=== PATIENT | male | born 1940 | race Caucasian/White ===

== ENCOUNTER 2020-06-02 15:41 | Inpatient (IN) | payer MEDICARE, SELFPAY ==
[2020-06-02] VITALS (7 sets, daily range): BP systolic 113–137; BP diastolic 68–79; PULSE 68–81; RESP 17–27; TEMP 36.3–36.8; O2SAT 88–95; BMI 23.5
--- NOTE | ~2020-06-02 | XR_ITS ---
EXAMINATION: XR chest 1V portable INDICATION: Shortness of breath, COVID pneumonia TECHNIQUE: Portable AP chest at 0611 hours COMPARISON: 06/02/2020 FINDINGS: Airspace opacities of the mid and lower lung zones persist without significant change. Ther e is no pleural effusion or pneumothorax. The cardiomediastinal silhouette is normal. IMPRESSION: 1. Stable airspace opacities of the mid and lower lung zones, consistent with pneumonia. 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 Stable airspace opacities of the mid and lower lung zones, consistent with p neumonia.
--- NOTE | ~2020-06-02 | XR_ITS ---
EXAMINATION: XR chest 1V portable DATE: 06/02/2020 16:40 INDICATION: Shortness of breath. COVID-19 positive. TECHNIQUE: A single frontal view of the chest was obtained. COMPARISON: None. FINDINGS: There is mild scarring at the lung apices. There are airspace opacities in the mid and lowe r lung zones. No pleural effusion or pneumothorax. The heart size is normal. IMPRESSION: 1. Airspace opacities in the mid and lower lung zones, consistent with pneumonia. 2. Mild scarring at the lung apices. 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 IMPRESSION: 1. Airspace opacities in the mid and lower lung zones, consistent with pneumoni a. 2. Mild scarring at the lung apices.
--- NOTE | 2020-06-02 15:45 | ECG_ITS ---
Measurements Intervals [place] Rate: 75 P: 35 IN: 129 QRS: 9 QRSD: 81 T: -6 QT: 403 QTc: 452 Interpretive Statements SINUS RHYTHM BORDERLINE T WAVE ABNORMALITY- INFERIOR LEADS BASELINE ARTIFACT- I, II, III, AVR, AVL, AVF, V4-V6 BORDERLINE ECG Electronically Signed On 06-02-2020 17:49:20 CDT by Justice Andrade D.O.
[2020-06-02 16:12] LABS: Basophils Percent Auto 0.2 % (0.2-1.2); Eosinophils Percent Auto 0.1 % (0-4.4); Hematocrit 40.7 % (42.0-52.0); Hemoglobin 13.6 g/dL (14.0-18.0); Immature Granulocyte Absolute 0.08 K/mm3 (0.00-0.031); Immature Granulocyte Percent A 0.8 % (0-0.5); Lymphocytes Percent Auto 11.6 % (18.3-44.2); Mean Corpuscular HGB Conc 33.4 g/dl (32-36); Mean Corpuscular Hemoglobin 31.1 pg (26-34); Mean Corpuscular Volume 93.1 fl (80-100); Mean Platelet Volume 12.3 fl (7.4-10.4); Monocytes Absolute Auto 1.1 K/mm3 (0.1-0.6); Monocytes Percent Auto 11.7 % (2.6-8.5); Neutrophils Absolute Auto 7.1 K/mm3 (1.3-6.7); Neutrophils Percent Auto 75.6 % (45.5-73.1); Platelet Count Result 160 k/mm3 (150-375); Red Blood Count 4.37 M/mm3 (4.6-6.20); Red Cell Distribution Width 13.1 % (11.5-14.5); White Blood Count 9.5 K/mm3 (4.5-10.0)
[2020-06-02 16:21] LABS: INR 1.2; Prothrombin Time 14.4 Seconds (11.1-14.7)
[2020-06-02 16:22] LABS: Partial Thromboplastin Time 57.6 SECONDS (22.3-36.8)
[2020-06-02 16:23] LABS: Lactic Acid Reflex 1.4 mmol/L (0.7-2.1)
[2020-06-02 16:39] LABS: Alanine Aminotransferase 59 U/L (4-50); Albumin Level 3.7 g/dL (3.5-5.1); Alkaline Phosphatase 232 U/L (38-126); Anion Gap 9 mmol/L (8-16); Aspartate Amino Transferase 75 U/L (17-59); Bilirubin,Total 0.9 mg/dL (0.2-1.3); Blood Urea Nitrogen 22 mg/dL (9-20); CRP 22.1 mg/dL (<1.0); Calcium 8.7 mg/dL (8.4-10.2); Carbon Dioxide 25 mmol/L (22-30); Chloride 100 mmol/L (98-107); Estimated CRCL calculation 46 ml/min; Estimated Glomerular Filt Rate > 60; Glucose 116 mg/dL (75-110); Potassium 4.3 mmol/L (3.4-5.0); Sodium 134 mmol/L (137-145)
--- NOTE | 2020-06-02 16:50 | ED.SOB ---
HPI - SOB/Dyspnea General Chief Complaint: Shortness of Breath/Dyspnea Stated Complaint: Covid + low O2 Time Seen by Provider: 06/02/20 16:08 Source: patient Mode of arrival: ambulatory Limitations: no limitations History of Present Illness HPI Narrative: 80 yr old with no major medical problems here with a complaints of shortness of breath, cough for past few days, he was diagnosed with Covid few days ago , he denies any chest pain .No nausea or vomiting.He also mentions his was also diagnosed with COVID . He states since this morning he has been having more SOB . MD elicited complaint: shortness of breath Onset (ago): day(s) (2) Context: recent illness Timing: constant Severity: moderate Exacerbating factors: exertion Relieving factors: oxygen Associated symptoms: denies other symptoms Treatment prior to arrival: oxygen Related Data Home Medications Medication Instructions Recorded Confirmed simvastatin mg 06/02/20 tamsulosin mg PO 06/02/20 06/02/20 Allergies Allergy/AdvReac Type Severity Reaction Status Date / Time No Known Allergies Allergy Verified 06/02/20 15:59 Review of Systems Review of Systems: All systems reviewed & are unremarkable except as noted in HPI and below Constitutional: Constitutional: Reports no additional constitutional complaints Eyes: Eyes: Reports no additional eye complaints ENT: Reports system reviewed and no additional complaints, except as documented Cardiovascular: Cardiovascular: Reports no additional cardiovascular complaints Respiratory: Respiratory: Reports as per HPI Gastrointestinal: Gastrointestinal: Reports no additional gastrointestinal complaints Musculoskeletal: Musculoskeletal: Reports no additional musculoskeletal complaints Neurologic: Reports system reviewed and no additional complaints, except as documented Psychiatric: Psychiatric: Reports no additional psychiatric complaints [facility] Social History Social History Smoking status: Never smoker Alcohol intake: never Gender identity (if verbalized by the patient): Male Exam Const: General: no acute distress and alert HENMT: Head: normal to inspection Eyes: Pupils: Equal, round and reactive pupils present Neck: Neck: no lymphadenopathy Chest: Chest palpation & inspection: normal inspection of the chest Resp: Auscultation: rhonchi and diminished lung sounds Cardio: Rate: regular rate GI: GI Palp: Yes Soft to palpation Skin: General skin exam: normal color Neuro: General: patient oriented x3, moves all extremities and CN's II-XI intact bilaterally Course Course Emergency Course: informed pt about his lab work and Xray findings . agreed for admission . Vital Signs Vital signs: Vital Signs Temperature 36.3 C L 06/02/20 15:55 Pulse Rate 81 06/02/20 15:55 Respiratory Rate 24 H 06/02/20 15:55 Blood Pressure 137/77 06/02/20 15:55 Pulse Oximetry 88 L 06/02/20 15:55 Temperature 36.3 C L 06/02/20 15:55 Pulse Rate 71 06/02/20 16:37 Respiratory Rate 17 06/02/20 16:37 Blood Pressure 113/74 06/02/20 16:37 Pulse Oximetry 94 06/02/20 16:37 MDM - SOB/Dyspnea Lab Data Result diagrams: 06/02/20 16:01 06/02/20 16:01 Labs: Lab Results 06/02/20 06/02/20 06/02/20 Range/Units 16:01 16:01 16:01 WBC 9.5 (4.5-10.0) K/mm3 RBC 4.37 L (4.6-6.20) M/mm3 Hgb 13.6 L (14.0-18.0) g/dL Hct 40.7 L (42.0-52.0) % MCV 93.1 (80-100) fl MCH 31.1 (26-34) pg MCHC 33.4 (32-36) g/dl RDW 13.1 (11.5-14.5) % Plt Count 160 (150-375) k/mm3 MPV 12.3 H (7.4-10.4) fl Immature Gran % (Auto) 0.8 H (0-0.5) % Neut % (Auto) 75.6 H (45.5-73.1) % Lymph % (Auto) 11.6 L (18.3-44.2) % [place] % (Auto) 11.7 H (2.6-8.5) % Eos % (Auto) 0.1 (0-4.4) % Baso % (Auto) 0.2 (0.2-1.2) % Lymph # (Auto) 1.10 (0.9-3.2) K/mm3 [place] # (
--- NOTE | 2020-06-02 17:04 | PC.NURSE ---
vrbo to start pt on Rocephin and azithromycin vrbo to give dexamethasone 6 mg ivp x1 rocephin 1g in 50 ml iv x1 azithromycin 500 mg in 250 ml iv x1 dexmethasone 6 mg ivp x1 all from dr zuluaga
[2020-06-02] MEDS: REMDESIVIR 200 MG/NS 250 ML 200 MG/250 ML BAG 250 MG IVPB (19:29)
--- NOTE | 2020-06-02 21:56 | ADMGEN ---
This patient, Dudley Gomez, was admitted to [facility] S[facility] Room 331-01. Patient/family oriented to hospital policies and general routines including ID bracelet, bed and alarms, visiting hours, pain management, procedures, bathroom and other care routines, personal items, smoking policy, room service/diet, and visiting hours. Information on how to activate the Rapid Response Team has been discussed. Patient/Family are encouraged to report perceived risks to care and to ask questions if they do not understand what they are told or what they should do.
--- NOTE | 2020-06-02 23:26 | PM.IMHP ---
H&P: HPI History of Present Illness Date/Time: 06/02/20 23:26 Chief complaint: COVID Pneumonia Narrative: Dudley Gomez is a 80 year old male who has a history of hyperlipidemia BPh. The patient stated that he tested positive for COVID-19 approximately 6 days ago. The patient stated he had been sick for couple days prior to that. He no longer has any fever but has been becoming more short of breath. His no chest pain no fever chills at this time. His was also tested for COVID-19 was diagnosed to within as well. This morning he just been more short of breath than usual. This occurs more so with exertion. On room air. The patient was placed on 2 L per nasal cannula in the patient increased to 94-95. He was started on Decadron and REMdezivir. IV fluids a Zithromax and Rocephin. I discontinued the fluids and the antibiotics. Opacities in the mid and lower lung zones consistent with pneumonia. Mild scarring at the lung apices. 75 ALT 59 alkaline phosphatase 232 C reactive protein 22.1. Labs all topical covid 19. The patient was admitted inpatient to 3rd floor. Date of service is 06/02/2020 Review of Systems Review of Systems: All systems reviewed & are unremarkable except as noted in HPI and below Constitutional: Constitutional: Reports as per HPI and Reports no additional constitutional complaints Eyes: Eyes: Reports as per HPI and Reports no additional eye complaints ENT: Reports system reviewed and no additional complaints, except as documented and Reports Normal hearing present Cardiovascular: Cardiovascular: Reports no additional cardiovascular complaints Respiratory: Respiratory: Reports no additional respiratory complaints and Reports no additional respiratory complaints Gastrointestinal: Gastrointestinal: Reports as per HPI and Reports no additional gastrointestinal complaints Musculoskeletal: Musculoskeletal: Reports no additional musculoskeletal complaints Integumentary/Breasts: Skin/Breast: Reports system reviewed and no additional complaints, except as docu and Reports as per HPI Neurologic: Reports system reviewed and no additional complaints, except as documented, Reports as per HPI and Reports Normal hearing present Psychiatric: Psychiatric: Reports no additional psychiatric complaints and Reports as per HPI Endocrine: Endocrine: Reports no additional endocrine complaints Hematologic/Lymphatic: Hematologic/Lymphatic: Reports no additional hematologic/lymphatic complaints Allergic/Immunologic: Allergic/Immunologic: Reports no additional allergic/immunologic complaints [facility] Past Medical History Medical History (Updated 06/02/20 @ 23:31 by Shandra Tello NP) BPH (benign prostatic hyperplasia) Hyperlipidemia Surgical History Surgical History (Updated 06/02/20 @ 23:31 by Shandra Tello NP) History of tonsillectomy and adenoidectomy Family History Family History Mother Cerebrovascular accident Social History Social History (Updated 06/02/20 @ 23:32 by Shandra Tello NP) Social History: The patient lives in [place] with his . His is the durable power workers compensation defense attorney for healthcare. The patient desires to be a full code. The patient has 3 children. 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 Lifelong nonsmoker. Does not use alcohol marijuana or illicit drugs. Smoking status: Never smoker Alcohol intake: former Substance use: never Living arrangements: with family Occupation/Education: retired Gender identity (if verbalized by the patient): Male Spiritual care concerns: No Meds Home Medications and Allergies Home Medications Medication Instructions Recorded Confirmed Type simvastatin 40 mg PO HS 06/02/20 06/02/20 History tamsulosin 0.4 mg PO HS 06/02/20 06/02/20 History Allergies Allergy/AdvReac Type Severity Reaction Status Date / Time No Known Allergies Allergy Verified 06/02/20 22:0
[2020-06-02] MEDS: TAMSULOSIN HCL 0.4 MG CAPSULE PO (23:57)
[2020-06-03] VITALS (10 sets, daily range): BP systolic 111–133; BP diastolic 48–75; PULSE 66–78; RESP 18–22; TEMP 36.4–36.7; O2SAT 88–100; BMI 23.5
[2020-06-03 06:44] LABS: Basophils Percent Auto 0.2 % (0.2-1.2); Hematocrit 43.6 % (42.0-52.0); Hemoglobin 14.6 g/dL (14.0-18.0); Immature Granulocyte Absolute 0.03 K/mm3 (0.00-0.031); Immature Granulocyte Percent A 0.5 % (0-0.5); Lymphocytes Absolute Auto 1.06 K/mm3 (0.9-3.2); Lymphocytes Percent Auto 18.8 % (18.3-44.2); Mean Corpuscular HGB Conc 33.5 g/dl (32-36); Mean Corpuscular Hemoglobin 31.3 pg (26-34); Mean Corpuscular Volume 93.4 fl (80-100); Mean Platelet Volume 12.2 fl (7.4-10.4); Monocytes Absolute Auto 0.3 K/mm3 (0.1-0.6); Monocytes Percent Auto 4.8 % (2.6-8.5); Neutrophils Absolute Auto 4.3 K/mm3 (1.3-6.7); Neutrophils Percent Auto 75.7 % (45.5-73.1); Platelet Count Result 197 k/mm3 (150-375); Red Blood Count 4.67 M/mm3 (4.6-6.20); Red Cell Distribution Width 13.1 % (11.5-14.5); White Blood Count 5.7 K/mm3 (4.5-10.0)
[2020-06-03 07:00] LABS: Alanine Aminotransferase 49 U/L (4-50); Albumin Level 3.5 g/dL (3.5-5.1); Alkaline Phosphatase 205 U/L (38-126); Anion Gap 11 mmol/L (8-16); Aspartate Amino Transferase 47 U/L (17-59); Bilirubin,Total 0.6 mg/dL (0.2-1.3); Blood Urea Nitrogen 20 mg/dL (9-20); Calcium 9.2 mg/dL (8.4-10.2); Carbon Dioxide 26 mmol/L (22-30); Chloride 104 mmol/L (98-107); Estimated CRCL calculation 62 ml/min; Estimated Glomerular Filt Rate > 60; Glucose 136 mg/dL (75-110); Magnesium 2.8 mg/dL (1.6-2.3); Potassium 4.5 mmol/L (3.4-5.0); Sodium 141 mmol/L (137-145)
[2020-06-03 07:12] LABS: CRP 22.8 mg/dL (<1.0)
[2020-06-03] MEDS: DEXAMETHASONE SOD PHOS INJ 4 MG/ML VIAL 6 MG IV PUSH (08:24)
[2020-06-03] MEDS: ENOXAPARIN 40 MG/0.4 ML SYRINGE SUB-Q (08:24)
--- NOTE | 2020-06-03 15:32 | PM.IMPN ---
Progress Note: A&P Assessment and Plan (1) COVID-19: Code(s): U07.1 - COVID-19 Status: Acute Assessment and Plan: Patient diagnosed with COVID about 6 days prior to admission. Patient here for increasing SOB and found to be hypoxic. The patient was placed on remdesivir and Decadron Day 2. Abx and IV fluids discontinued. Wean O2 as toelrated. (2) BPH (benign prostatic hyperplasia): Code(s): N40.0 - Benign prostatic hyperplasia without lower urinary tract symptoms Status: Chronic Assessment and Plan: Stable. Continue with Flomax (3) Hyperlipidemia: Code(s): E78.5 - Hyperlipidemia, unspecified Status: Chronic Assessment and Plan: Liver enzymes elevated due to COVID but are normal now. Zocor on hold. Will resume. (4) DVT prophylaxis: Code(s): Z29.9 - Encounter for prophylactic measures, unspecified Status: Acute Assessment and Plan: Lovenox Subjective Date/time seen: 06/03/20 15:32 Interval history: Date of service 06/03 80yo male recently diagnosed with COVID here for SOB. Patient feels better. Up abmulating in the room. 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 Cough productive of yellow brown sputum. No CP. No n/v. Eating well. Exam Narrative: Exam Narrative: AF 97.6 123/66 75 20 95% 4L Gen - NARD lying almost flat in bed Chest - CTA bilaterally, nml RR CV - RRR S1/S2; Tele showing occasional bradycardia to the 50's Abd - Soft, NT/ND, Positive BS Ext - No pedal edema Psych - Nml mood and affect Skin - Warm and dry Objective Data Vital Signs Vital Signs: Vital Signs - 24 hr 06/02/20 15:55 06/02/20 15:57 06/02/20 16:37 Temperature 97.4 F L Pulse Rate 81 71 Respiratory Rate 24 H 17 Blood Pressure 137/77 113/74 Pulse Oximetry 88 L 94 94 06/02/20 17:48 06/02/20 20:09 06/02/20 20:52 Temperature 98.2 F Pulse Rate 68 68 Respiratory Rate 27 H 20 Blood Pressure 119/68 137/79 Pulse Oximetry 95 90 94 06/02/20 22:39 06/03/20 00:00 06/03/20 00:04 Temperature Pulse Rate 71 71 Respiratory Rate Blood Pressure Pulse Oximetry 88 L 93 06/03/20 00:07 06/03/20 04:00 06/03/20 08:00 Temperature 98.0 F 97.6 F Pulse Rate 68 74 74 Respiratory Rate 22 H 20 Blood Pressure 119/63 111/48 L Pulse Oximetry 93 93 06/03/20 09:00 06/03/20 12:00 Temperature 97.6 F 97.6 F Pulse Rate 69 78 Respiratory Rate 20 20 Blood Pressure 131/75 123/66 Pulse Oximetry 97 95 Intake/Output Intake/Output: Intake & Output 05/31/20 06/01/20 06/02/20 06/03/20 23:59 23:59 23:59 23:59 Intake Total 550 880 Output Total 500 Balance 550 380 Meds/Results Medications: Active Medications Generic Name Dose Route Start Last Admin Trade Name Freq PRN Reason Stop Dose Admin Acetaminophen 650 mg 06/02/20 17:35 Acetaminophen 325 Mg Tablet PO Q4H PRN Mild Pain (1-3) or Fever Albuterol 2 puff 06/02/20 23:24 Albuterol Sulfate (*Sp) Aerosol 1 Puff INHALATION QIDRT PRN Shortness Of Breath Dexamethasone Sodium Phosphate 6 mg 06/03/20 09:00 06/03/20 08:24 Dexamethasone Sod Phos Inj 4 Mg/Ml Vial IV PUSH 06/12/20 09:01 6 mg DAILY SHERRY Administration Enoxaparin Sodium 40 mg 06/03/20 09:00 06/03/20 08:24 Enoxaparin 40 Mg/0.4 Ml Syringe SUB-Q 40 mg DAILY SHERRY Administration Remdesivir 100 mg in 250 mls @ 250 mls/hr 06/03/20 19:00 IVPB 06/06/20 19:01 Q24H SHERRY Ondansetron HCl 4 mg 06/02/20 17:35 Ondansetron Inj 4 Mg/2 Ml Vial IV PUSH Q4H PRN Nausea Tamsulosin HCl 0.4 mg 06/02/20 22:50 06/02/20 23:57 Tamsulosin Hcl 0.4 Mg Capsule PO 0.4 mg HS SHERRY Administration Radiology Results: ITS Impressions Chest X-Ray 06/02/20 16:41 IMPRESSION: 1. Airspace opacities in the mid and lower lung zones, consistent with pneumonia. 2. Mild scarring at the lung apices. Labs Labs: Laboratory Results - last 24 hr
[2020-06-03] MEDS: REMDESIVIR 100 MG/NS 250 ML 100 MG/250 ML BAG 250 MG IVPB (20:01)
[2020-06-03] MEDS: TAMSULOSIN HCL 0.4 MG CAPSULE PO (20:02)
[2020-06-03] MEDS: SIMVASTATIN 20 MG TABLET 40 MG PO (20:02)
[2020-06-04] VITALS (9 sets, daily range): BP systolic 118–139; BP diastolic 62–97; PULSE 52–75; RESP 18–20; TEMP 36.4–36.6; O2SAT 92–98
[2020-06-04 06:40] LABS: Alanine Aminotransferase 45 U/L (4-50); Anion Gap 7 mmol/L (8-16); Blood Urea Nitrogen 26 mg/dL (9-20); Calcium 8.6 mg/dL (8.4-10.2); Carbon Dioxide 26 mmol/L (22-30); Chloride 106 mmol/L (98-107); Estimated CRCL calculation 56 ml/min; Estimated Glomerular Filt Rate > 60; Glucose 111 mg/dL (75-110); Lactate Dehydrogenase 695 U/L (313-618); Potassium 4.1 mmol/L (3.4-5.0); Sodium 139 mmol/L (137-145)
[2020-06-04 06:52] LABS: CRP 11.9 mg/dL (<1.0)
--- NOTE | 2020-06-04 09:41 | PM.IMPN ---
Progress Note: A&P Assessment and Plan (1) COVID-19: Code(s): U07.1 - COVID-19 Status: Acute Assessment and Plan: Patient diagnosed with COVID about 6 days prior to admission. Patient here for increasing SOB and found to be hypoxic. The patient was placed on remdesivir and Decadron Day 3. Abx and IV fluids discontinued. Still on 4L NC but exam benign. Wean O2 as tolerated (2) BPH (benign prostatic hyperplasia): Code(s): N40.0 - Benign prostatic hyperplasia without lower urinary tract symptoms Status: Chronic Assessment and Plan: Stable. Continue with Flomax (3) Hyperlipidemia: Code(s): E78.5 - Hyperlipidemia, unspecified Status: Chronic Assessment and Plan: Liver enzymes elevated due to COVID but are normal now. Continue Zocor. (4) DVT prophylaxis: Code(s): Z29.9 - Encounter for prophylactic measures, unspecified Status: Acute Assessment and Plan: Lovenox 06/04 Subjective Date/time seen: 06/04/20 09:41 Interval history: Date of service 06/04 80yo male recently diagnosed with COVID here for SOB. Patient feels well. Minimal dyspnea on exertion. Shortness of breath overall is much improved. No chest pain. No nausea or vomiting. Cough is minimal. He has been up ambulating in the room frequently. Exam Narrative: Exam Narrative: AF 97.5 120/63 69 18 92% 4L Gen - NARD sitting at the side of the bed Chest - CTA bilaterally, nml RR CV - RRR S1/S2; Tele showing occasional bradycardia Abd - Soft, NT/ND, Positive BS Ext - No pedal edema Psych - Nml mood and affect Skin - Warm and dry Objective Data Vital Signs Vital Signs: Vital Signs - 24 hr 06/03/20 12:00 06/03/20 16:00 06/03/20 17:00 Temperature 97.6 F 97.6 F Pulse Rate 78 75 67 Respiratory Rate 20 20 Blood Pressure 123/66 133/74 Pulse Oximetry 95 100 06/03/20 20:00 06/04/20 00:00 06/04/20 04:00 Temperature 97.8 F 97.9 F 97.6 F Pulse Rate 77 62 52 L Respiratory Rate 18 18 18 Blood Pressure 125/72 139/74 136/62 Pulse Oximetry 98 93 93 06/04/20 09:00 Temperature 97.5 F L Pulse Rate 69 Respiratory Rate 18 Blood Pressure 120/63 Pulse Oximetry 92 Intake/Output Intake/Output: Intake & Output 06/01/20 06/02/20 06/03/20 06/04/20 23:59 23:59 23:59 23:59 Intake Total 550 1920 300 Output Total 1100 Balance 550 820 300 Meds/Results Medications: Active Medications Generic Name Dose Route Start Last Admin Trade Name Freq PRN Reason Stop Dose Admin Acetaminophen 650 mg 06/02/20 17:35 Acetaminophen 325 Mg Tablet PO Q4H PRN Mild Pain (1-3) or Fever Albuterol 2 puff 06/02/20 23:24 Albuterol Sulfate (*Sp) Aerosol 1 Puff INHALATION QIDRT PRN Shortness Of Breath Dexamethasone Sodium Phosphate 6 mg 06/03/20 09:00 06/03/20 08:24 Dexamethasone Sod Phos Inj 4 Mg/Ml Vial IV PUSH 06/12/20 09:01 6 mg DAILY SHERRY Administration Enoxaparin Sodium 40 mg 06/03/20 09:00 06/03/20 08:24 Enoxaparin 40 Mg/0.4 Ml Syringe SUB-Q 40 mg DAILY SHERRY Administration Remdesivir 100 mg in 250 mls @ 250 mls/hr 06/03/20 19:00 06/03/20 21:00 IVPB 06/06/20 19:01 Infused Q24H SHERRY Infusion Ondansetron HCl 4 mg 06/02/20 17:35 Ondansetron Inj 4 Mg/2 Ml Vial IV PUSH Q4H PRN Nausea Simvastatin 40 mg 06/03/20 21:00 06/03/20 20:02 Simvastatin 20 Mg Tablet PO 40 mg HS SHERRY Administration Tamsulosin HCl 0.4 mg 06/02/20 22:50 06/03/20 20:02 Tamsulosin Hcl 0.4 Mg Capsule PO 0.4 mg HS SHERRY Administration Radiology Results: ITS Impressions Chest X-Ray 06/02/20 16:41 IMPRESSION: 1. Airspace opacities in the mid and lower lung zones, consistent with pneumonia. 2. Mild scarring at the lung apices. Labs Labs: Laboratory Results - last 24 hr 06/04/20 06/04/20 05:59 05:59 Sodium 139 Potassium 4.1 Chloride 106 Carbon Dioxide 26 Anion Gap 7 L
[2020-06-04] MEDS: DEXAMETHASONE SOD PHOS INJ 4 MG/ML VIAL 6 MG IV PUSH (09:48)
[2020-06-04] MEDS: ENOXAPARIN 40 MG/0.4 ML SYRINGE SUB-Q (09:48)
--- NOTE | 2020-06-04 12:40 | WPDCDIQUERY2 ---
CDI Query Clarification Request Patient admitted from ED with diagnosis of Pneumonia, COVID-19 (test positive 6 days prior to admission). CXR 06/02 impression: 1. Airspace opacities in the mid and lower lung zones, consistent with pneumonia. 2. Mild scarring at the lung apices No further mention of pneumonia. Please clarify if diagnosis of pneumonia is present or has been ruled out, if known. Thank you. <Aylin Waldron, REMEDIATION BIOANALYTICS CONSULTANT - Last Filed: 06/04/20 12:43>
[2020-06-04] MEDS: REMDESIVIR 100 MG/NS 250 ML 100 MG/250 ML BAG 150 MG IVPB (18:01)
[2020-06-04] MEDS: SIMVASTATIN 20 MG TABLET 40 MG PO (20:39)
[2020-06-04] MEDS: TAMSULOSIN HCL 0.4 MG CAPSULE PO (20:40)
[2020-06-05] VITALS (9 sets, daily range): BP systolic 115–144; BP diastolic 63–89; PULSE 57–67; RESP 14–18; TEMP 36.3–36.9; O2SAT 87–97
[2020-06-05 06:26] LABS: Alanine Aminotransferase 45 U/L (4-50)
[2020-06-05] MEDS: DEXAMETHASONE SOD PHOS INJ 4 MG/ML VIAL 6 MG IV PUSH (08:45)
[2020-06-05] MEDS: ENOXAPARIN 40 MG/0.4 ML SYRINGE SUB-Q (08:45)
[2020-06-05 10:15] LABS: Estimated CRCL calculation 56 ml/min; Estimated Glomerular Filt Rate > 60
--- NOTE | 2020-06-05 14:36 | PM.IMPN ---
Progress Note: A&P Assessment and Plan (1) COVID-19: Code(s): U07.1 - COVID-19 Status: Acute Assessment and Plan: Patient diagnosed with COVID about 6 days prior to admission. Patient here for increasing SOB and found to be hypoxic. The patient was placed on remdesivir and Decadron Day 4. Abx and IV fluids discontinued. Still on 3L NC but exam benign and patient not progressing. Wean O2 as tolerated. Repeat CXR and inflammatory markers tomorrow PNEUMONIA RULED OUT. (2) BPH (benign prostatic hyperplasia): Code(s): N40.0 - Benign prostatic hyperplasia without lower urinary tract symptoms Status: Chronic Assessment and Plan: Stable. Continue with Flomax (3) Hyperlipidemia: Code(s): E78.5 - Hyperlipidemia, unspecified Status: Chronic Assessment and Plan: Liver enzymes elevated due to COVID but are normal now. Continue Zocor. (4) DVT prophylaxis: Code(s): Z29.9 - Encounter for prophylactic measures, unspecified Status: Acute Assessment and Plan: Lovenox Subjective Date/time seen: 06/05/20 14:37 Interval history: Date of service 06/05 80yo male recently diagnosed with COVID here for SOB. No issues overnight. Patient denies any nausea or vomiting. No complaints of chest pain or shortness of breath. Still has some dyspnea on exertion. He is up ambulating in the room. No abdominal pain. Eating normally. Exam Narrative: Exam Narrative: AF 97.5 119/73 66 14 95% 3L Gen - NARD sitting at the side of the bed Chest - CTA bilaterally, nml RR CV - RRR S1/S2 Abd - Soft, NT/ND, Positive BS Ext - No pedal edema Psych - Nml mood and affect Skin - Warm and dry Objective Data Vital Signs Vital Signs: Vital Signs - 24 hr 06/04/20 17:00 06/04/20 17:30 06/04/20 20:00 Temperature 97.6 F 97.7 F Pulse Rate 64 62 69 Respiratory Rate 20 18 18 Blood Pressure 131/74 133/97 H Pulse Oximetry 98 98 93 06/05/20 00:00 06/05/20 04:00 06/05/20 08:00 Temperature 98.4 F 97.9 F 97.3 F L Pulse Rate 67 57 L 66 Respiratory Rate 18 18 16 Blood Pressure 144/76 H 139/73 116/63 Pulse Oximetry 93 97 90 06/05/20 08:48 06/05/20 08:58 06/05/20 12:00 Temperature 97.5 F L Pulse Rate 57 L 66 Respiratory Rate 18 14 Blood Pressure 119/73 Pulse Oximetry 87 L 90 95 Intake/Output Intake/Output: Intake & Output 06/02/20 06/03/20 06/04/20 06/05/20 23:59 23:59 23:59 23:59 Intake Total 550 1920 3250 490 Output Total 1100 Balance 912 889 7143 490 Meds/Results Medications: Active Medications Generic Name Dose Route Start Last Admin Trade Name Freq PRN Reason Stop Dose Admin Acetaminophen 650 mg 06/02/20 17:35 Acetaminophen 325 Mg Tablet PO Q4H PRN Mild Pain (1-3) or Fever Albuterol 2 puff 06/02/20 23:24 Albuterol Sulfate (*Sp) Aerosol 1 Puff INHALATION QIDRT PRN Shortness Of Breath Dexamethasone Sodium Phosphate 6 mg 06/03/20 09:00 06/05/20 08:45 Dexamethasone Sod Phos Inj 4 Mg/Ml Vial IV PUSH 06/12/20 09:01 6 mg DAILY SHERRY Administration Enoxaparin Sodium 40 mg 06/03/20 09:00 06/05/20 08:45 Enoxaparin 40 Mg/0.4 Ml Syringe SUB-Q 40 mg DAILY SHERRY Administration Remdesivir 100 mg in 250 mls @ 250 mls/hr 06/03/20 19:00 06/04/20 19:43 IVPB 06/06/20 19:01 Infused Q24H SHERRY Infusion Ondansetron HCl 4 mg 06/02/20 17:35 Ondansetron Inj 4 Mg/2 Ml Vial IV PUSH Q4H PRN Nausea Simvastatin 40 mg 06/03/20 21:00 06/04/20 20:39 Simvastatin 20 Mg Tablet PO 40 mg HS SHERRY Administration Tamsulosin HCl 0.4 mg 06/02/20 22:50 06/04/20 20:40 Tamsulosin Hcl 0.4 Mg Capsule PO 0.4 mg HS SHERRY Administration Radiology Results: ITS Impressions Chest X-Ray 06/02/20 16:41 IMPRESSION: 1. Airspace opacities in the mid and lower lung zones, consistent with pneumonia. 2. Mild scarring at the lung apices. Labs Labs: Laboratory Re
[2020-06-05] MEDS: REMDESIVIR 100 MG/NS 250 ML 100 MG/250 ML BAG 150 MG IVPB (18:15)
[2020-06-05] MEDS: TAMSULOSIN HCL 0.4 MG CAPSULE PO (20:34)
[2020-06-05] MEDS: SIMVASTATIN 20 MG TABLET 40 MG PO (20:34)
[2020-06-06] VITALS (7 sets, daily range): BP systolic 112–157; BP diastolic 71–99; PULSE 55–75; RESP 18–20; TEMP 36.4–36.7; O2SAT 91–99
--- NOTE | 2020-06-06 01:49 | PC.NURSE ---
Daylight Savings Time For Daylight Savings Time Ending in the Fall - Clocks are moved back. For Daylight Savings Time Beginning in the Spring - Clocks are moved ahead. For [facility], the time of change occurs at 0200 hrs. Time is taken from the room server. This entry on the patient's chart recognizes the change in time reflected during documentation. Example: 2 entries for vital signs may be charted for 0200 hrs.
[2020-06-06 06:43] LABS: Basophils Percent Auto 0.2 % (0.2-1.2); Eosinophils Percent Auto 0.2 % (0-4.4); Hematocrit 39.5 % (42.0-52.0); Hemoglobin 13.6 g/dL (14.0-18.0); Immature Granulocyte Absolute 0.11 K/mm3 (0.00-0.031); Lymphocytes Absolute Auto 1.45 K/mm3 (0.9-3.2); Lymphocytes Percent Auto 13.5 % (18.3-44.2); Mean Corpuscular HGB Conc 34.4 g/dl (32-36); Mean Corpuscular Hemoglobin 31.5 pg (26-34); Mean Corpuscular Volume 91.4 fl (80-100); Mean Platelet Volume 12.5 fl (7.4-10.4); Monocytes Absolute Auto 1.1 K/mm3 (0.1-0.6); Monocytes Percent Auto 10.4 % (2.6-8.5); Neutrophils Percent Auto 74.7 % (45.5-73.1); Platelet Count Result 142 k/mm3 (150-375); Red Blood Count 4.32 M/mm3 (4.6-6.20); Red Cell Distribution Width 13.2 % (11.5-14.5); White Blood Count 10.8 K/mm3 (4.5-10.0)
[2020-06-06 07:00] LABS: Alanine Aminotransferase 48 U/L (4-50); Albumin Level 2.9 g/dL (3.5-5.1); Alkaline Phosphatase 119 U/L (38-126); Anion Gap 6 mmol/L (8-16); Aspartate Amino Transferase 44 U/L (17-59); Bilirubin,Total 0.4 mg/dL (0.2-1.3); Blood Urea Nitrogen 20 mg/dL (9-20); CRP 4.6 mg/dL (<1.0); Calcium 8.6 mg/dL (8.4-10.2); Carbon Dioxide 26 mmol/L (22-30); Chloride 106 mmol/L (98-107); Estimated CRCL calculation 56 ml/min; Estimated Glomerular Filt Rate > 60; Glucose 93 mg/dL (75-110); Lactate Dehydrogenase 734 U/L (313-618); Potassium 4.3 mmol/L (3.4-5.0); Sodium 138 mmol/L (137-145)
[2020-06-06] MEDS: DEXAMETHASONE SOD PHOS INJ 4 MG/ML VIAL 6 MG IV PUSH (09:28)
[2020-06-06] MEDS: ENOXAPARIN 40 MG/0.4 ML SYRINGE SUB-Q (09:28)
--- NOTE | 2020-06-06 10:22 | PM.DS ---
DS: Admitting Diagnosis Admitting Diagnosis Admitting Diagnosis: COVID Pneumonia DS: Discharge Diagnosis Discharge Diagnosis (1) COVID-19: Code(s): U07.1 - COVID-19 Status: Acute Assessment and Plan: Patient diagnosed with COVID about 6 days prior to admission. Patient here for increasing SOB and found to be hypoxic. CXR showing airspace opacities in the mid and lower lung zones. Pneumonia ruled out. The patient was placed on remdesivir and Decadron. Abx and IV fluids were started initially but discontinued because all felt this was related to COVID. Repeat CXR show similar findings. Ferritin 1230 and trended down. CRP 22.8 and also trended down. Able to be weaned to room air. (2) BPH (benign prostatic hyperplasia): Code(s): N40.0 - Benign prostatic hyperplasia without lower urinary tract symptoms Status: Chronic Assessment and Plan: Stable. We continued with Flomax (3) Hyperlipidemia: Code(s): E78.5 - Hyperlipidemia, unspecified Status: Chronic Assessment and Plan: Liver enzymes elevated due to COVID but are normal now. We resumed Zocor. DS: Summary Hospital Course Reason for hospitalization: 80yo male who was recently diagnosed with COVID here for SOB and found to be hypoxic. Please see H&P for details Hospital Course: As above Time Spent with Patient Time attestation: Total time spent providing and/or coordinating discharge services: 32 minutes Time spent: Greater than 30 minutes Exam Narrative: Exam Narrative: AF 97.6 128/99 70 20 91% ra Gen - NARD sitting up Chest - CTA bilaterally, nml RR CV - RRR S1/S2 Abd - Soft, NT/ND, Positive BS Ext - No pedal edema Psych - Nml mood and affect Skin - Warm and dry DS: Data Data Completed and Pending Labs on day of discharge: Labs from last 24 hours 06/06/20 06/06/20 06/06/20 06:26 06:26 06:26 WBC 10.8 H RBC 4.32 L Hgb 13.6 L Hct 39.5 L MCV 91.4 MCH 31.5 MCHC 34.4 RDW 13.2 Plt Count 142 L MPV 12.5 H Immature Gran % (Auto) 1.0 H Neut % (Auto) 74.7 H Lymph % (Auto) 13.5 L Leon % (Auto) 10.4 H Eos % (Auto) 0.2 Baso % (Auto) 0.2 Lymph # (Auto) 1.45 Leon # (Auto) 1.1 H Eos # (Auto) 0.0 Baso # (Auto) 0.0 Abs Immat Gran (auto) 0.11 H Absolute Neuts (auto) 8.0 H Absolute Nucleated RBC 0.0 Nucleated RBC % 0.0 Sodium 138 Potassium 4.3 Chloride 106 Carbon Dioxide 26 Anion Gap 6 L BUN 20 Creatinine 0.90 Estim Creat Clear Calc 56 Estimated GFR > 60 Glucose 93 Calcium 8.6 Ferritin 571.00 H Total Bilirubin 0.4 AST 44 ALT 48 Alkaline Phosphatase 119 Lactate Dehydrogenase 734 H C-Reactive Protein 4.6 H Total Protein 6.0 L Albumin 2.9 L Preliminary micro results at discharge 06/02/20 16:02 Blood Culture - Preliminary Blood 06/02/20 16:01 Blood Culture - Preliminary Blood Discharge Plan Discharge Attending physician on discharge: Joe Almonte Discharging Clinician: Joe Almonte Anticipated Discharge Date/Time: 06/06/20 10:30 Patient Disposition: Home, Self-Care Activity: as tolerated Diet: regular Discharge Instructions: Please avoid large gathering, wear face coverings in public and practice social distance. Please remain under quarantine through 06/17/20 Please complete your steroid course even if you are starting to feel well. Take precautions to avoid falls. Rise slowly from a lying or sitting position. Pause before standing or walking. Avoid NSAIDs (ibuprofen, naproxen, Aleve). Tylenol is safe to take. Follow-up with your doctor in 1-2 weeks. Please call for appointment. Patient Instructions: Antibiotic Form, Viral Pneumonia (GEN), Pain Management (GEN), Droplet Precautions (GEN), COVID-19 (Coronavirus Disease 2019) (GEN), COVID-19: Slow the Coronavirus Spread (GEN), Face Coverings (Mas
--- NOTE | 2020-06-06 11:50 | PCRCNOTE ---
HOME OXYGEN EVALUATION COMPLETE; PT. DOES NOT REQUIRE HOME OXYGEN. R.N. NOTIFIED OF RESULTS.
== END 2020-06-06 13:10 | disposition home or self-care (01) | DRG 179 ==
LOC: ANHED 18:51 → ANH3MEDSUR 23:46
PROVIDERS: Nurse Practitioner; Admitting Provider Family Medicine; Emergency Provider Family Medicine; PCP Internal Medicine; Visit Provider Internal Medicine
DX: U07.1 COVID-19 (principal); E78.5 Hyperlipidemia, unspecified; N40.0 Benign prostatic hyperplasia without lower urinary tract symptoms
CPT/HCPCS: 36415; 71045; 80048; 80053; 82565; 82728; 83605; 83615; 83735; 84460; 85025; 85610; 85730; 86140; 87040; 93005; 94618; 96374; 96375; 99285; A9270; J0456; J0696; J1100; J1650

== ENCOUNTER 2021-09-28 01:58 | Day surgery (SDC) | payer MEDICARE, SELFPAY ==
--- NOTE | 2021-09-22 12:32 | PC.NURSE ---
Report to the Outpatient Waiting Room, entrance under the green pavilion located off [facility], at time _1030 on date ___09/28/21____. OR Time: __1230 . - You and your visitor will be asked a series of questions to screen for COVID 19 for your protection. - A mask is required within the hospital. Preoperative COVID Testing Requirements: No COVID Test needed if: (proof is required; if not received patient will have Rapid Test prior to entry) - Patient has received COVID Vaccine at least 14 days prior to procedure date or - Patient has positive COVID test result within last 90 days of surgery date. COVID Test needed if above criteria is not met If not COVID vaccinated a COVID test must be conducted within 72 hours of surgery and patient is asked to isolate self from time of testing until procedure. You will go to the [facility] for your COVID testing. The [facility] site is located at the corner of [address] [facility]. You will only be called if COVID results are positive and your surgeon may reschedule your elective surgery date. Patients may have clear liquids (water, carbonated beverages, clear teas, apple juice) until 3 hours prior to surgery with a maximum of 20 ounces. - No food from midnight until time of surgery - Infants may have breast milk until 4 hours before surgery, infant formula 6 hours prior to surgery. - Children will be allowed to drink immediately following surgery. If applicable, please bring a bottle or sippy cup to assist with drinking. Juice, water, soda, and popsicles are readily available. For infants on formula, please bring formula the day of surgery. Pacifiers are allowed. Take the following medications with a SIP of water the morning of surgery: ___NONE Medications to discontinue per physician ALL VITAMINS AND SUPPLEMENTS 3 DAYS PRE OP Date to take last dose____09/24/21 Please no make-up, nail indonesian, hairspray, perfume, deodorant, or body powder the day of surgery. No jewelry (including any body piercings) or valuables the day of surgery, leave them at home. Please take a shower or bath the night before, or the morning of, surgery with an antibacterial soap. Wear comfortable, loose fitting clothing. Children are encouraged to wear pajamas. - Jewelry must be removed prior to entering the operating room. Rings and piercings that are not removed may be cut off. - The hospital will not accept responsibility for valuables. - Please leave all valuables, including medications, at home the day of surgery. If you are going home after surgery, a licensed race car driver must drive you home. - NO public transportation without another adult. - We recommend that an adult stay with you for 24 hours following discharge. - We also recommend that you do not drive, make important decision, drink alcoholic beverages, or take any drugs that were not prescribed by your health care provider for at least 24 hours after your discharge time. For Pediatric surgeries, we recommend two adults accompany the child home (only one inside the building at this time). One visitor will be allowed to accompany the patient into the hospital. Patients visitor will be instructed to remain with patient at all times or leave the building. We will allow the visitor to come back to the postoperative area when patient is ready. Follow any additional instructions given to you from your surgeon. Telephone instructions given to __PATIENT and asked if any additional questions and then verbalized understanding. Patient advised to call surgeon office or pre surgery nurse liaison [phone] if any additional questions.
[2021-09-22 12:33] VITALS: BMI 25.0
--- NOTE | 2021-09-28 08:10 | WPDHPUPDATE1 ---
History and Physical Update Update Date/Time: 09/28/21 08:10 History and Physical has been reviewed, including an updated exam of the patient. There are NO changes in the patient's condition. Risks, benefits, and alternatives have been discussed and questions answered. Patient agrees to proceed with procedure.
[2021-09-28 11:00] VITALS: BP 146/80; PULSE 64; RESP 16; TEMP 36.8; O2SAT 100
[2021-09-28] MEDS: LACTATED RINGERS 1,000 ML 30 ML IV CONT (12:00)
--- NOTE | 2021-09-28 14:05 | SUR.PREOP ---
1345; SPOKE WITH PT AND SPOUSE. SURGERY NOW DELAYED ANOTHER 2 HOURS. RECLINER BROUGHT INTO ROOM, PT UP TO RECLINER FOR COMFORT.
--- NOTE | 2021-09-28 15:35 | WPDANESEPPF ---
Anes - Initial Pre Proc Eval Procedure: Operation Date: 09/28/21 15:00 Proposed Procedures p Excision Skin Lesion of Scalp - Espinoza Benitez MD Date/Time: 09/28/21 15:35 Surgeon: Espinoza Benitez MD Pre Op Diagnosis: Scalp Lesion Patient Data Age: 81 Gender: M Height: 1.7 m Weight: 69.6 kg Last Vital Signs Temp 36.8 C 09/28/21 11:00 Pulse 64 09/28/21 11:00 Resp 16 09/28/21 11:00 BP 146/80 H 09/28/21 11:00 Pulse Ox 100 09/28/21 11:00 Allergies Allergy/AdvReac Type Severity Reaction Status Date / Time No Known Allergies Allergy Verified 09/22/21 12:22 Home Medications Medication Instructions Recorded Confirmed Type simvastatin 40 mg PO HS 06/02/20 09/28/21 History tamsulosin 0.4 mg PO HS 06/02/20 09/28/21 History aspirin 81 mg tablet,delayed 81 mg PO HS 09/19/21 09/28/21 History release melatonin 5 mg capsule 5 mg PO DAILY PRN cap 09/19/21 09/28/21 History Patient hx anesthesia problems: none Family hx anesthesia problems: none Results Review: All pre-operative results and documents have been reviewed as part of the pre-operative evaluation. [facility] Past Medical History Medical History BPH (benign prostatic hyperplasia) Hyperlipidemia Surgical History Surgical History History of cataract surgery Family History Family History Mother Cerebrovascular accident Father No problems noted. Social History Social History Social History: The patient lives in [place] with his . His is the durable power assistant district attorney for healthcare. The patient desires to be a full code. The patient has 3 children. 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 Lifelong nonsmoker. Does not use alcohol marijuana or illicit drugs. Smoking status: Never smoker Alcohol intake: current Drinks per week: 2 Alcohol use details: SOCIALLY Substance use: never Living arrangements: with family Gender identity (if verbalized by the patient): Male Spiritual care concerns: No Anes - Eval Final PreProcedure Day of Procedure 09/28/21 15:35 Patient weight: normal Heart: regular rate and rhythm Lungs: clear to auscultation Airway: Mallampati scale class II Neurological: alert and oriented Last oral intake: >/= 8 hours ASA classification: II Emergent: no Anesthetic plan: proceed Anesthesia type and monitoring: general GIVS and standard monitoring Results Review: All pre-operative results and documents have been reviewed as part of the pre-operative evaluation. Informed Consent: The patient's anesthetic plan and its attendant risks and benefits were discussed with the patient/family/POA. Questions were solicited and answers provided to the satisfaction of the patient/family/POA.
[2021-09-28] MEDS: ceFAZolin 2 GM/D5W 50 ML 2 GM/50 ML BAG IVPB (16:06)
[2021-09-28] MEDS: BUPIVACAINE/EPINEPHRINE 0.25% 10 ML VIAL 20 ML INFILTRATE (16:40)
[2021-09-28 17:10] VITALS: BP 152/75; PULSE 81; RESP 16; O2SAT 96
[2021-09-28 17:40] VITALS: BP 158/84; PULSE 55; RESP 16
[2021-09-28 17:54] VITALS: BP 107/75; PULSE 64; RESP 16; O2SAT 96
--- NOTE | 2021-09-28 18:11 | SUR.PHASEII ---
ASSESSMENT CHARTED AT 1754 MEANT TO BE AT 1654.
--- NOTE | 2021-09-28 18:41 | P.OP_ITS ---
Procedure Note - Detailed Date of Procedure 09/28/21 Pre-op Diagnosis Skin lesion left parietal scalp Post-op Diagnosis same Procedure Performed Excision 2.2 cm skin lesion of the scalp with 3 mm margins-2.8 cm excision. 7.5 cm layered wound closure Surgeon Espinoza Benitez MD Cell Manager Jill REMY Anesthesia MAC and local (0.25% Marcaine with epinephrine) Indications Patient has a suspicious somewhat exophytic skin lesion of the left parietal scalp. It is bothersome as it is large and raised. He is taken to surgery now for excision Findings None significant. Appeared limited to the skin and superficial subcutaneous. Description of Procedure Patient was checked in the preoperative holding area. Some of the hair from his scalp was shaved. The lesion was marked with the proposed excision drawn on the scalp. He was then taken to surgery and placed in a supine position. His head was turned slightly to the right. Prep and drape was carried out. Local anesthetic was infiltrated in the area of the anticipated excision. This was in the shape of an ellipse that would completely excise the lesion with 3 mm margins or more. After local was infiltrated, the lesion was excised in the area of the ellipse. The superficial subcutaneous was taken with the skin and the area was completely removed. The lesion was measured. Cautery was used for hemostasis. The subcutaneous was undermined off the scalp so that the edges of the excision would be able to be advanced towards 1 another with less tension. The deep subcutaneous fascia was approximated with 4-0 Vicryl subcutaneous suture. Some 4-0 Vicryl subcuticular interrupted sutures were placed. The skin was finally closed with vertical mattress sutures of 2-0 nylon. Wound was cleaned and dressed with antibiotic ointment. Patient tolerated the procedure well. He transferred to outpatient surgery in good condition. Sponge and needle counts were correct x2. Estimated Blood Loss -20 Drains No Packing No Pathology yes (Left parietal scalp skin lesion) Complications No immediate complications Condition stable Disposition same day
== END 2021-09-28 18:00 | disposition home or self-care (01) ==
PROVIDERS: PCP Internal Medicine; Visit Provider Surgery
PROC: (CPT 11423; principal; 2021-09-28 15:00)
DX: L82.1 Other seborrheic keratosis (principal); E78.5 Hyperlipidemia, unspecified; N40.0 Benign prostatic hyperplasia without lower urinary tract symptoms; Z79.82 Long term (current) use of aspirin
CPT/HCPCS: 11423; 12032; 88305; A9270; J0690; J2704; J3010; J7120

== ENCOUNTER → 2021-11-28 14:41 | Outpatient (REF) | payer MEDICARE, SELFPAY | LOC: ANHLAB 14:41 | PROVIDERS: PCP Internal Medicine; Visit Provider Nurse Practitioner | DX: L82.1 Other seborrheic keratosis (principal) | CPT/HCPCS: 88305 ==

== ENCOUNTER → 2022-01-31 09:15 | Outpatient (REF) | payer MEDICARE, SELFPAY | LOC: ANHLAB 09:15 | PROVIDERS: PCP Internal Medicine; Visit Provider Nurse Practitioner | DX: D04.39 Carcinoma in situ of skin of other parts of face (principal); L57.8 Other skin changes due to chronic exposure to nonionizing radiation | CPT/HCPCS: 88305 ==

== ENCOUNTER 2022-08-25 08:23 | Outpatient (CLI) | payer MEDICARE, SELFPAY ==
--- NOTE | ~2022-08-25 | NM_ITS ---
EXAMINATION: NM bone scan whole body DATE: 08/25/2022 13:28 INDICATION: Prostate cancer TECHNIQUE: 25.7 mCi Tc-99m HDP was administered intravenously. Delayed whole-body scintigrams were o btained. COMPARISON: There are no relevant imaging studies at our institution. FINDINGS: Typical pattern of mild likely degenerative joint centered uptake at the bilateral acromioclavicular joints, bilateral first metatarsophalangeal joints, right greater than left and left sacroiliac joint . There is mild increased uptake posteriorly at the left side of L4-L5 and right-sided L5-S1 likely r elated to facet osteoarthritis. No other atypical foci of bone uptake suspicious for metastatic disea se. IMPRESSION: 1. No atypical foci of abnormal bone uptake to suggest metastatic disease. 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 ENT FINANCIAL SPECIALIST
== END 2022-08-25 08:24 | disposition home or self-care (01) ==
LOC: ANHIMG 08:25
PROVIDERS: PCP Family Medicine; Visit Provider Radiology Radiation Oncology
DX: C61 Malignant neoplasm of prostate (principal)
CPT/HCPCS: 78306; A9503